=== PATIENT | male | born 1995 | race Caucasian/White ===

== ENCOUNTER 2016-09-17 18:29 | Emergency (ER) | payer OTHER ==
[~2016-09-17] VITALS: Ht 193 cm; Wt 77.1 kg
[~2016-09-17 18:29] MED LIST: HYDR-552 PO; SENN1TAB6 PO
[2016-09-17] MEDS ORDERED: ONDANSETRON HCL/PF 4 MG/2 ML VIAL ONE (18:40)
[2016-09-17] MEDS ORDERED: LORAZEPAM INJ 2 MG/ML VIAL ONE (18:40)
--- NOTE | 2016-09-17 18:40 | NUR ---
PT CAME IN FOR SOB. PALPITATIONS. NOTED ANXIOUS, SHAKING. VSS. SEEN BY MD. SAFETY AND COMFORT MEASURES PROVIDED. WILL MONITOR.
[2016-09-17] MEDS ORDERED: LORAZEPAM INJ 2 MG/ML VIAL IV ONE (19:00)
[2016-09-17] MEDS ORDERED: ONDANSETRON HCL/PF - ER 4 MG/2 ML VIAL IV ONE (19:00)
--- NOTE | 2016-09-17 19:00 | NUR ---
IV ACCESS STARTED. PT MEDICATED ORDERED.
--- NOTE | 2016-09-17 19:42 | NUR ---
IV removed. Catheter intact and site benign. Pressure and 4x4 applied to site. No bleeding noted. Patient discharged to home in stable condition. Written and verbal after care instructions given. Patient verbalizes understanding of instruction. ambulatory with a steady gaitn noted. pt aaox4 no acute distress noted, resp even and unlabored. advice pt not to drive or operate any machinery due to pt was given ativan. pt verbalize understanding. pt s/o at bedside to take pt home.
[2016-09-17 19:45] VITALS: BP 118/62
== END 2016-09-17 19:46 | disposition home or self-care (01) ==
LOC: ER 18:30
DX: F41.9 Anxiety disorder, unspecified (principal); Z88.0 Allergy status to penicillin
CPT/HCPCS: 71010; 93005; 96374; 96375; 99284; A4606; J2060; J2405; Z7610